=== PATIENT | male | born 1945 | race Caucasian/White ===

== ENCOUNTER 2022-04-20 14:30 | Inpatient (IN) | payer MEDICARE, OTHER ==
[~2022-04-20] VITALS: Ht 177.8 cm; Wt 69.4 kg
--- NOTE | 2022-04-20 14:50 | NUR ---
DR CESPEDES AT BEDSIDE FOR EVALUATION.
[2022-04-20 15:06] LABS: MEAN CORPUSCULAR HEMOGLOBIN 31.5 uug (23.8-33.4); MEAN CORPUSCULAR VOLUME 93.2 fL (73.0-96.2); PLATELET COUNT (AUTO) 141 K/uL (152-348)
[2022-04-20] MEDS ORDERED: SENN-18 PO (15:06)
[2022-04-20] MEDS ORDERED: PANT40TA2 PO (15:06)
[2022-04-20] MEDS ORDERED: POLY17PO4 PO (15:06)
[2022-04-20] MEDS ORDERED: OXYC5CAP18 PO (15:06)
[2022-04-20] MEDS ORDERED: MULT-1188 PO (15:06)
[2022-04-20 15:19] LABS: ALANINE AMINOTRANSFERASE 34 U/L (16-63); ALKALINE PHOSPHATASE 72 U/L (50-136); ASPARTATE AMINOTRANSFERASE 21 U/L (15-37); BILIRUBIN,DIRECT 0.2 mg/dL (0.0-0.2); CARBON DIOXIDE 31 mmol/L (21-32); CHLORIDE 106 mmol/L (98-107); CREATININE 1.4 mg/dL (0.6-1.3); GLUCOSE 114 mg/dL (74-106); POTASSIUM 4.3 mmol/L (3.5-5.1); TOTAL PROTEIN, SERUM 7.4 g/dL (6.4-8.2); UREA NITROGEN, BLOOD 31 mg/dL (7-18)
[2022-04-20] MEDS ORDERED: TRAZ-182 PO (15:36)
[2022-04-20] MEDS ORDERED: THIA100T13 PO (15:36)
[2022-04-20 15:39] LABS: ETHANOL < 3 MG/DL (0-0)
[2022-04-20 15:44] LABS: ACETAMINOPHEN < 2.0 ug/mL (10-30)
--- NOTE | 2022-04-20 15:48 | NUR ---
Spoke with gloria jackson, said she will come to evaluate the pt.
--- NOTE | 2022-04-20 15:48 | NUR ---
UA sent to lab
[2022-04-20 15:53] LABS: *BILIRUBIN,URIN NEGATIVE (NEGATIVE); *BLOOD, URINE NEGATIVE (NEGATIVE); *CLARITY,URINE CLEAR (CLEAR); *COLOR,URINE YELLOW (YELLOW); *KETONES,URINE NEGATIVE (NEGATIVE); *UROBILINOGEN,URINE 0.2 E.U./dl (NORMAL); LEUKOCYTE ESTERASE ,URINE NEGATIVE (NEGATIVE); NITRITE, URINE NEGATIVE (NEGATIVE); UGLUCOSE NEGATIVE (NEGATIVE)
[2022-04-20 16:03] LABS: *AMPHETAMINE, URINE NEGATIVE (NEGATIVE); *CANNABINOID, URINE NEGATIVE (NEGATIVE); *COCCAINE, URINE NEGATIVE (NEGATIVE); *OPIATE, URINE NEGATIVE (NEGATIVE); *PHENCYCLIDINE SCREEN,URINE NEGATIVE (NEGATIVE)
--- NOTE | 2022-04-20 16:18 | NUR ---
ROGER HERE FOR PSYCH EVALUATION.
[2022-04-20] MEDS ORDERED: FOLI1TAB94 PO (16:44)
[2022-04-20] MEDS ORDERED: ACET-2154 PO (16:44)
[2022-04-20] MEDS ORDERED: MAGN400C PO (16:44)
[2022-04-20] MEDS ORDERED: CHOLECALCIFEROL PO (16:44)
[2022-04-20] MEDS ORDERED: LACT10SO3 PO (16:44)
--- NOTE | 2022-04-20 16:46 | NUR ---
Per gloria said art will come to evaluate the pt.
--- NOTE | 2022-04-20 18:39 | NUR ---
Pinky on pts bedside for pysche eval.
--- NOTE | 2022-04-20 20:02 | NUR ---
Report given to Massimo KWONG
[2022-04-20] MEDS ORDERED: LORAZEPAM 0.5 MG TABLET PO PRN (20:30)
[2022-04-20] MEDS ORDERED: MAG HYDROX/AL HYDROX/SIMETH 30 ML LIQUID UDC PO PRN (20:30)
[2022-04-20] MEDS ORDERED: ACETAMINOPHEN 325 MG TABLET PO PRN (20:30)
[2022-04-20] MEDS ORDERED: MAGNESIUM HYDROXIDE 30 ML LIQUID UDC PO PRN (20:30)
--- NOTE | 2022-04-20 20:43 | NUR ---
pt taken to [facility] via [facility] with all belongings.
[2022-04-20] MEDS ORDERED: CHOL-35 PO (20:45)
[2022-04-20 20:50] VITALS: BP 165/99
[2022-04-20] MEDS ORDERED: BLOOD SUGAR DIAGNOSTIC 1 EACH STRIP VI ONE (21:00)
--- NOTE | 2022-04-21 00:01 | NUR ---
Patient received from [facility] via [facility] at 2030. Patient Alert/Oriented x1 disoriented, agitated, labile, aggressive, and appearance was unkempt. Patient refused to take pictures of injuries to left periorbital redness, left arm ecchymosis, and right arm ecchymosis. Patient was unable to answer questions due to confusion and became irritable with pressured speech and refused to answer, however, he denied SI.Patient refused having accucheck and refused snack, "I just want to go to bed and be left alone." Patient was checked for contraband and was oriented to room.Safety measures rendered, bed in lowest position, bed locked, and bed alarm on while in bed.
[2022-04-21 07:30] VITALS: BP 151/65
[2022-04-21] MEDS ORDERED: OLANZAPINE 2.5 MG TABLET PO SCH ×2 (09:00)
[2022-04-21] MEDS: DIVALPROEX SPRINKLE 125 MG CAP.SPRINK PO SCH ×2 (10:05→20:12)
[2022-04-21] MEDS: OLANZAPINE 5 MG TABLET PO SCH (10:05)
[2022-04-21 12:55] LABS: ALANINE AMINOTRANSFERASE 47 U/L (16-63); ALKALINE PHOSPHATASE 71 U/L (50-136); ASPARTATE AMINOTRANSFERASE 31 U/L (15-37); BILIRUBIN,TOTAL 1.4 mg/dL (0.2-1.0); CARBON DIOXIDE 31 mmol/L (21-32); CHLORIDE 104 mmol/L (98-107); CREATININE 1.5 mg/dL (0.6-1.3); GLUCOSE 56 mg/dL (74-106); POTASSIUM 3.9 mmol/L (3.5-5.1); TOTAL PROTEIN, SERUM 7.9 g/dL (6.4-8.2); UREA NITROGEN, BLOOD 30 mg/dL (7-18)
--- NOTE | 2022-04-21 15:13 | NUR ---
Received patient is alert and oriented x1 to self only,ambulating in the unit no interaction with peers and staffs.patient is labile and aggressive when approach , patient with poor insight and impair judgement denies any SI. compliant with all AM medication will continue close monitoring.
[2022-04-21 16:00] VITALS: BP 133/63
[2022-04-21] MEDS ORDERED: OXYCODONE HCL 5 MG TABLET PO PRN (18:30)
[2022-04-21 20:00] VITALS: BP 124/71
[2022-04-21] MEDS: MAGNESIUM OXIDE 400 MG TABLET PO SCH (20:12)
--- NOTE | 2022-04-22 04:09 | NUR ---
Received patient in his room, sleeping. Responsive to name, A&Ox1. Isolative in his room. Compliant with medications. Patient to be avoidant with staff. Safety strategies in place. Closely monitoring observed.
[2022-04-22] MEDS: PANTOPRAZOLE SODIUM 40 MG TABLET.DR PO SCH (06:16)
[2022-04-22 07:48] VITALS: BP 95/55
[2022-04-22] MEDS: THIAMINE HCL 100 MG TABLET PO SCH ×2 (09:00→09:22)
[2022-04-22] MEDS: LACTULOSE 20 G/30 ML LIQUID UDC PO SCH (09:00)
[2022-04-22] MEDS: OLANZAPINE 5 MG TABLET PO SCH ×2 (09:00→09:19)
[2022-04-22] MEDS: MULTIVIT, IRON, MIN NO. 8, FA TABLET PO SCH ×2 (09:00→09:22)
[2022-04-22] MEDS: MIRALAX 17 GM POWD.PACK PO SCH ×2 (09:00→09:22)
[2022-04-22] MEDS: DIVALPROEX SPRINKLE 125 MG CAP.SPRINK PO SCH ×3 (09:00→21:38)
--- NOTE | 2022-04-22 10:18 | NUR ---
Gps/Decker Operator- Agry, irritable behavior, refused routine am meds. reviewed with patient, claimed he does not needs any medications and he spoked to the Doctor this am . Incontinence noted, was taken to shower, uncooperative during his care, gets agry, and aggressive trying to hit FINANCE DIRECTOR during his shower. Needings prompting and redirections in sequencing tasks, difficulty following directions, agruementative.
--- NOTE | 2022-04-22 12:04 | NUR ---
SW Discharge Update: Pt currently resides at [address] [address] ([phone]). Alicia from the facility stated that pt is welcome back upon discharge.
--- NOTE | 2022-04-22 12:15 | NUR ---
ANKIT Initial Discharge Note: Pt currently resides at [address] [address] ([phone]). Alicia from the facility stated that pt is welcome back upon discharge. ANKIT will continue to work with pt's sister, Rohitsylvia [place]oss[place] ([phone]), pt, and MD to ensure a safe and proper discharge plan.
--- NOTE | 2022-04-22 12:19 | NUR ---
Firearms Report: Talent Advisor completed and submitted a [employer] firearms report for 5150 a danger to others and grave disability certifications. A copy of report has been placed in patient chart.
[2022-04-22 16:20] VITALS: BP 104/51
--- NOTE | 2022-04-22 21:30 | NUR ---
Received patient in his room. He is noted sleeping but easily arousable. noted A/o x 2. Patient is noted guarded, and irritable upon apporached, but he is looking forward to go back to his SNF. He stated, "At my place, i have a TV next to my bed. i could watch tv at night, not in this place". Patient was reassured and redirected. Initially he refused his QHS medications but after redirections and reassurance, He was able to take all his medications. patient denied SI/HI/VH/AH. he is able to CFS, He was given PO fluids and snacks. V/S are stable. patient is reassured for his safety. safety and fall precaution are in place. will continue to monitor.
[2022-04-22] MEDS: MAGNESIUM OXIDE 400 MG TABLET PO SCH (21:38)
[2022-04-23] MEDS: PANTOPRAZOLE SODIUM 40 MG TABLET.DR PO SCH (06:47)
[2022-04-23 07:43] VITALS: BP 124/67
[2022-04-23] MEDS: MIRALAX 17 GM POWD.PACK PO SCH (09:00)
[2022-04-23] MEDS: LACTULOSE 20 G/30 ML LIQUID UDC PO SCH (09:00)
[2022-04-23] MEDS: MULTIVIT, IRON, MIN NO. 8, FA TABLET PO SCH (09:24)
[2022-04-23] MEDS: DIVALPROEX SPRINKLE 125 MG CAP.SPRINK PO SCH ×2 (09:24→20:09)
[2022-04-23] MEDS: OLANZAPINE 5 MG TABLET PO SCH ×2 (09:25→18:06)
[2022-04-23] MEDS: THIAMINE HCL 100 MG TABLET PO SCH (09:25)
[2022-04-23 17:01] VITALS: BP 116/56
[2022-04-23] MEDS: MAGNESIUM OXIDE 400 MG TABLET PO SCH (20:09)
[2022-04-23 20:44] VITALS: BP 111/49
--- NOTE | 2022-04-24 03:37 | NUR ---
GPS NOTES: Received patient in his room, sleeping, arousable to name and touch. Attempt to greet, but is irritable and with blunt affect. Patient isolative, depress and doesn't interact with staff or peers. Compliant with medication. Safety strategies in place.
[2022-04-24] MEDS: PANTOPRAZOLE SODIUM 40 MG TABLET.DR PO SCH (06:16)
[2022-04-24 07:49] VITALS: BP 112/70
[2022-04-24] MEDS: MIRALAX 17 GM POWD.PACK PO SCH (08:55)
[2022-04-24] MEDS: MULTIVIT, IRON, MIN NO. 8, FA TABLET PO SCH (08:55)
[2022-04-24] MEDS: LACTULOSE 20 G/30 ML LIQUID UDC PO SCH (08:55)
[2022-04-24] MEDS: THIAMINE HCL 100 MG TABLET PO SCH (08:55)
[2022-04-24] MEDS: DIVALPROEX SPRINKLE 125 MG CAP.SPRINK PO SCH ×2 (08:55→20:14)
[2022-04-24] MEDS: OLANZAPINE 5 MG TABLET PO SCH ×2 (08:55→16:38)
--- NOTE | 2022-04-24 13:58 | NUR ---
GPS: Nursing Notes: Destructive Behavior To Others: Patient is awake and responding to his name, poor anger management, loud and pressured speech, angry affect, labile, refusing to participate in therapeutic groups, unkempt appearance, resistant with nursing care, stated, "Just leave alone..", needs prompting to be compliant with his medications, unable to formulate a viable plan for self care, isolative and withdrawn in his room, covering his head with a blanket, continue to monitor for safety, continue with treatment plan.
[2022-04-24 16:06] VITALS: BP 102/56
[2022-04-24 20:00] VITALS: BP 106/64
[2022-04-24] MEDS: MAGNESIUM OXIDE 400 MG TABLET PO SCH (20:14)
[2022-04-25] MEDS: PANTOPRAZOLE SODIUM 40 MG TABLET.DR PO SCH (06:24)
--- NOTE | 2022-04-25 06:37 | NUR ---
GPS: Pt.slept 8.30 last night. Less irritable this am. Re-assured prn. Safety emphasized. Took Protonix earlier as ordered. Will continue to monitor.
[2022-04-25 07:36] VITALS: BP 119/66
[2022-04-25] MEDS: OLANZAPINE 5 MG TABLET PO SCH ×2 (08:44→16:28)
[2022-04-25] MEDS: THIAMINE HCL 100 MG TABLET PO SCH (08:44)
[2022-04-25] MEDS: MULTIVIT, IRON, MIN NO. 8, FA TABLET PO SCH (08:44)
[2022-04-25] MEDS: DIVALPROEX SPRINKLE 125 MG CAP.SPRINK PO SCH ×2 (08:44→20:12)
[2022-04-25] MEDS: LACTULOSE 20 G/30 ML LIQUID UDC PO SCH (08:45)
[2022-04-25] MEDS: MIRALAX 17 GM POWD.PACK PO SCH (08:45)
--- NOTE | 2022-04-25 10:52 | NUR ---
GPS: Nursing Notes: Destructive Behavior To Others: Patient is awake and responding to his name, poor anger management, resistant with nursing care, loud and pressured speech, resistant with nursing care, poor grooming, unkempt appearance, needs a lot prompting to be compliant with his medications, angry affect, isolative and withdrawn in his room, covering his head with a blanket, redirected, but shouting "LEAVE ME ALONE..", refusing to participate in therapeutic groups, unable to formulate a viable plan for self care, continue to monitor for safety, continue with treatment plan.
[2022-04-25 16:28] VITALS: BP 149/80
[2022-04-25 19:58] VITALS: BP 136/74
[2022-04-25] MEDS: MAGNESIUM OXIDE 400 MG TABLET PO SCH (20:12)
[2022-04-26] MEDS: TEMAZEPAM 7.5 MG CAPSULE PO PRN ×2 (00:16→21:09)
[2022-04-26] MEDS: PANTOPRAZOLE SODIUM 40 MG TABLET.DR PO SCH (06:04)
--- NOTE | 2022-04-26 06:36 | NUR ---
GPS: Pt. got agitated at this time and claiming that the remote control that he's holding does not work for his TV inside his room. Reminded pt.that he does not have a TV in his room. Also seeing rats inside his room. Easily agitated when being re-directed. Reality re-orientation provided. Ativan 0.5mg given PO and taken. Will continue to monitor.
--- NOTE | 2022-04-26 06:50 | NUR ---
GPS: Pt.refused scheduled blood drawing this am despite explanation of importance. l
--- NOTE | 2022-04-26 06:57 | NUR ---
GPS: Pt.finally allowed to have blood drawing now. Communicated. Calmer at this time.
[2022-04-26 07:07] LABS: HEMATOCRIT 45.4 % (36.7-47.1); MEAN CORPUSCULAR HEMOGLOBIN 31.8 uug (23.8-33.4); MEAN CORPUSCULAR VOLUME 92.1 fL (73.0-96.2); PLATELET COUNT (AUTO) 143 K/uL (152-348)
[2022-04-26 07:16] LABS: ALANINE AMINOTRANSFERASE 40 U/L (16-63); ALKALINE PHOSPHATASE 75 U/L (50-136); ASPARTATE AMINOTRANSFERASE 28 U/L (15-37); BILIRUBIN,TOTAL 2.1 mg/dL (0.2-1.0); CARBON DIOXIDE 25 mmol/L (21-32); CHLORIDE 106 mmol/L (98-107); CREATININE 1.4 mg/dL (0.6-1.3); GLUCOSE 92 mg/dL (74-106); MAGNESIUM 1.8 mg/dL (1.8-2.4); PHOSPHOROUS 3.3 mg/dL (2.5-4.9); TOTAL PROTEIN, SERUM 7.9 g/dL (6.4-8.2); UREA NITROGEN, BLOOD 36 mg/dL (7-18)
[2022-04-26 08:01] VITALS: BP 145/92
[2022-04-26] MEDS: THIAMINE HCL 100 MG TABLET PO SCH (08:43)
[2022-04-26] MEDS: OLANZAPINE 5 MG TABLET PO SCH ×2 (08:43→17:17)
[2022-04-26] MEDS: DIVALPROEX SPRINKLE 125 MG CAP.SPRINK PO SCH ×2 (08:43→21:09)
[2022-04-26] MEDS: MULTIVIT, IRON, MIN NO. 8, FA TABLET PO SCH (08:43)
[2022-04-26] MEDS: LACTULOSE 20 G/30 ML LIQUID UDC PO SCH (08:43)
[2022-04-26] MEDS: MIRALAX 17 GM POWD.PACK PO SCH (08:43)
[2022-04-26] MEDS: GLUCERNA SHAKE 237 ML CAN PO SCH (11:45)
--- NOTE | 2022-04-26 11:54 | NUR ---
GPS: Nursing Notes: Thought Disorder: Patient is awake and responding to his name, impaired judgment, disorganized, resistant with nursing care, internally preoccupied, believes that the TV in his room is not working, by clicking his finger during the night, his fingers got injured and he was trying to make his bed, small spots of blood all over his bed sheet and the randall that he touched, when asked what happened accused staff of fighting with him, redirected and reoriented during shift, no signs of bleeding during assessment, given a shower, compliant with his medications, gets easily irritable redirected, labile, unpredictable behavior, unable to formulate a viable plan for self care, continue to monitor for safety, continue with treatment plant.
--- NOTE | 2022-04-26 14:15 | NUR ---
PT [facility] 14 DAY HOLD HEARING DONE TODAY AND WITH APPROVE PROBABLE CAUSE OF GRAVE DISABILITY ONLY. PT DID NOT PARTICIPATE WITH THE HEARING.
[2022-04-26 16:35] VITALS: BP 144/66
[2022-04-26 19:52] VITALS: BP 142/76
[2022-04-26] MEDS: MAGNESIUM OXIDE 400 MG TABLET PO SCH (21:09)
[2022-04-27] MEDS: PANTOPRAZOLE SODIUM 40 MG TABLET.DR PO SCH (06:56)
[2022-04-27 07:30] VITALS: BP 108/51
[2022-04-27] MEDS: MIRALAX 17 GM POWD.PACK PO SCH (09:00)
[2022-04-27] MEDS: LACTULOSE 20 G/30 ML LIQUID UDC PO SCH (09:00)
[2022-04-27] MEDS: DIVALPROEX SPRINKLE 125 MG CAP.SPRINK PO SCH ×2 (09:24→20:30)
[2022-04-27] MEDS: MULTIVIT, IRON, MIN NO. 8, FA TABLET PO SCH (09:24)
[2022-04-27] MEDS: OLANZAPINE 5 MG TABLET PO SCH ×2 (09:24→16:38)
[2022-04-27] MEDS: GLUCERNA SHAKE 237 ML CAN PO SCH (09:24)
[2022-04-27] MEDS: THIAMINE HCL 100 MG TABLET PO SCH (09:24)
--- NOTE | 2022-04-27 14:25 | NUR ---
GPS: Nursing Notes: Destructive Behavior To Others: Patient is awake and responding to is name, gets easily irritable when redirected, mood swings, angry affect, loud and pressured speech at times, resistant with nursing care, argumentative with staff at times, refusing to participate in therapeutic groups, poor grooming, unkempt appearance, unable to formulate a viable plan for self care, poor insight, impaired judgment, believes that someone stole his TV, continue to monitor for safety, continue with treatment plan.
[2022-04-27 15:44] VITALS: BP 113/61
[2022-04-27] MEDS ORDERED: MIRALAX 17 GM POWD.PACK PO PRN (16:15)
[2022-04-27 20:13] VITALS: BP 112/56
[2022-04-27] MEDS: MAGNESIUM OXIDE 400 MG TABLET PO SCH (20:30)
[2022-04-28] MEDS: PANTOPRAZOLE SODIUM 40 MG TABLET.DR PO SCH (06:16)
[2022-04-28 07:30] VITALS: BP 121/48
[2022-04-28 08:30] VITALS: BP 121/48
[2022-04-28] MEDS: OLANZAPINE 5 MG TABLET PO SCH ×2 (08:34→17:36)
[2022-04-28] MEDS: MULTIVIT, IRON, MIN NO. 8, FA TABLET PO SCH (08:34)
[2022-04-28] MEDS: DIVALPROEX SPRINKLE 125 MG CAP.SPRINK PO SCH ×2 (08:34→20:35)
[2022-04-28] MEDS: THIAMINE HCL 100 MG TABLET PO SCH (08:34)
[2022-04-28] MEDS: GLUCERNA SHAKE 237 ML CAN PO SCH (08:35)
[2022-04-28 16:40] VITALS: BP 126/49
--- NOTE | 2022-04-28 16:49 | NUR ---
GPS: PT ISOLATIVE, STAYING IN HIS ROOM ALMOST ALL THE TIME. PT COMPLIANT WITH MEDICATIONS. REFUSED ATTENDING GROUP THERAPY. DENIES PAIN OR DISCOMFORT.
[2022-04-28] MEDS: MAGNESIUM OXIDE 400 MG TABLET PO SCH (20:35)
[2022-04-28 20:41] VITALS: BP 96/54
--- NOTE | 2022-04-29 06:12 | NUR ---
Received to care, lying in bed. Remains isolative.Compliant with medications. Slept 11 hours last night. Went to the bathroom this morning, and went back to bed. No distress noted.
[2022-04-29] MEDS: PANTOPRAZOLE SODIUM 40 MG TABLET.DR PO SCH (06:32)
[2022-04-29 07:09] LABS: *BILIRUBIN,URIN NEGATIVE (NEGATIVE); *BLOOD, URINE NEGATIVE (NEGATIVE); *CLARITY,URINE CLEAR (CLEAR); *COLOR,URINE YELLOW (YELLOW); *KETONES,URINE NEGATIVE (NEGATIVE); *UROBILINOGEN,URINE 0.2 E.U./dl (NORMAL); LEUKOCYTE ESTERASE ,URINE NEGATIVE (NEGATIVE); NITRITE, URINE NEGATIVE (NEGATIVE); PH,URINE 5.5 (5.0-8.0); UGLUCOSE NEGATIVE (NEGATIVE)
[2022-04-29 07:30] VITALS: BP 133/70
[2022-04-29 07:33] LABS: *CREATININE,URINE 60.8 mg/dL (30-125)
[2022-04-29] MEDS: GLUCERNA SHAKE 237 ML CAN PO SCH (08:27)
[2022-04-29] MEDS: MULTIVIT, IRON, MIN NO. 8, FA TABLET PO SCH (08:27)
[2022-04-29] MEDS: THIAMINE HCL 100 MG TABLET PO SCH (08:27)
[2022-04-29] MEDS: OLANZAPINE 5 MG TABLET PO SCH ×2 (08:27→17:47)
[2022-04-29] MEDS: DIVALPROEX SPRINKLE 125 MG CAP.SPRINK PO SCH ×2 (08:27→20:00)
--- NOTE | 2022-04-29 09:27 | NUR ---
GPS: PT ALERT AND ORIENTED X2. PT ISOLATIVE, STAYING IN HIS ROOM ONLY. INDEPENDENT WITH TOILETING. PT COMPLIANT WITH MEDS AND CARE. NO AGITATION NOTED AT THIS TIME. PT ENCOURAGED GROUP THERAPY BUT REFUSED.
[2022-04-29 12:31] LABS: MEAN CORPUSCULAR HEMOGLOBIN 31.7 uug (23.8-33.4); MEAN CORPUSCULAR VOLUME 92.8 fL (73.0-96.2); PLATELET COUNT (AUTO) 130 K/uL (152-348)
[2022-04-29 12:41] LABS: CARBON DIOXIDE 29 mmol/L (21-32); CHLORIDE 108 mmol/L (98-107); CREATININE 1.6 mg/dL (0.6-1.3); GLUCOSE 82 mg/dL (74-106); MAGNESIUM 1.8 mg/dL (1.8-2.4); PHOSPHOROUS 3.1 mg/dL (2.5-4.9); UREA NITROGEN, BLOOD 39 mg/dL (7-18)
[2022-04-29 15:31] VITALS: BP 104/59
[2022-04-29 20:00] VITALS: BP 126/59
[2022-04-29] MEDS: MAGNESIUM OXIDE 400 MG TABLET PO SCH (20:00)
[2022-04-30] MEDS: PANTOPRAZOLE SODIUM 40 MG TABLET.DR PO SCH (06:15)
--- NOTE | 2022-04-30 06:22 | NUR ---
Received to care, lying in bed, isolative, but pleasant and cooperative. Compliant with medications. Given fluids, and a snack. Fresh water left at bedside. Slept well and was assisted with a shower, this morning. He sat up for a few minutes watching TV, then went back to sleep, And remains so. No aggressive behaviors noted this shift.
[2022-04-30 07:30] VITALS: BP 142/71
[2022-04-30] MEDS: MULTIVIT, IRON, MIN NO. 8, FA TABLET PO SCH (09:07)
[2022-04-30] MEDS: DIVALPROEX SPRINKLE 125 MG CAP.SPRINK PO SCH ×2 (09:14→20:30)
[2022-04-30] MEDS: OLANZAPINE 2.5 MG TABLET PO SCH ×2 (09:14→16:32)
[2022-04-30] MEDS: GLUCERNA SHAKE 237 ML CAN PO SCH (09:16)
[2022-04-30] MEDS: THIAMINE HCL 100 MG TABLET PO SCH (09:17)
--- NOTE | 2022-04-30 11:07 | NUR ---
Gps/Rn Office- Stayed in the activity room, watching TV. Compliant with his am routine meds. Quiet , no interactive, Remains with some patches of bruising on his arms, skin tenting , dry. Safety reviewed. Attended his am group therapy, noted napping on his chair.
[2022-04-30 16:25] VITALS: BP 108/56
[2022-04-30 19:45] VITALS: BP 92/55
[2022-04-30] MEDS: MAGNESIUM OXIDE 400 MG TABLET PO SCH (20:30)
[2022-05-01] MEDS: PANTOPRAZOLE SODIUM 40 MG TABLET.DR PO SCH (06:16)
[2022-05-01 07:30] VITALS: BP 126/75
[2022-05-01] MEDS: THIAMINE HCL 100 MG TABLET PO SCH (08:21)
[2022-05-01] MEDS: MULTIVIT, IRON, MIN NO. 8, FA TABLET PO SCH (08:21)
[2022-05-01] MEDS: DIVALPROEX SPRINKLE 125 MG CAP.SPRINK PO SCH ×2 (08:21→20:43)
[2022-05-01] MEDS: OLANZAPINE 2.5 MG TABLET PO SCH ×2 (08:25→16:49)
[2022-05-01] MEDS: GLUCERNA SHAKE 237 ML CAN PO SCH (08:28)
--- NOTE | 2022-05-01 14:39 | NUR ---
Gps/Director Field Services- Staying in bed, in his room most of the day, encouraged attending his group therapy . Guarded, compliant with routine meds.
[2022-05-01 16:00] VITALS: BP 124/65
[2022-05-01 20:00] VITALS: BP 107/60
[2022-05-01] MEDS: MAGNESIUM OXIDE 400 MG TABLET PO SCH (20:43)
--- NOTE | 2022-05-01 21:45 | NUR ---
received patient in his room in bed sleeping with his blanket covering all his face. pt is easily arousable. he is a poor historian, makes no eye contact. He is easily irritable. he requires redirection and reassurance. His V/S stable. PO fluids and snacks were given to patient. He is reassure for his safety. safety and fall precaution in place. will continue to monitor.
[2022-05-02] MEDS: PANTOPRAZOLE SODIUM 40 MG TABLET.DR PO SCH (06:01)
[2022-05-02 07:55] LABS: HEMATOCRIT 39.2 % (36.7-47.1); MEAN CORPUSCULAR HEMOGLOBIN 31.9 uug (23.8-33.4); MEAN CORPUSCULAR VOLUME 91.9 fL (73.0-96.2); PLATELET COUNT (AUTO) 130 K/uL (152-348)
[2022-05-02] MEDS: MULTIVIT, IRON, MIN NO. 8, FA TABLET PO SCH (08:09)
[2022-05-02] MEDS: DIVALPROEX SPRINKLE 125 MG CAP.SPRINK PO SCH ×2 (08:09→20:27)
[2022-05-02] MEDS: OLANZAPINE 2.5 MG TABLET PO SCH ×2 (08:10→17:48)
[2022-05-02 08:11] LABS: CREATININE 1.3 mg/dL (0.6-1.3); MAGNESIUM 1.8 mg/dL (1.8-2.4); PHOSPHOROUS 3.9 mg/dL (2.5-4.9); POTASSIUM 4.6 mmol/L (3.5-5.1)
[2022-05-02] MEDS: THIAMINE HCL 100 MG TABLET PO SCH (08:11)
[2022-05-02] MEDS: GLUCERNA SHAKE 237 ML CAN PO SCH (08:11)
[2022-05-02 08:13] VITALS: BP 140/65
[2022-05-02 16:17] VITALS: BP 132/71
[2022-05-02 19:51] VITALS: BP 142/66
[2022-05-02] MEDS: MAGNESIUM OXIDE 400 MG TABLET PO SCH (20:27)
--- NOTE | 2022-05-03 03:58 | NUR ---
Received patient in his room, ambulating to restroom with steady gait noted. Went back to bed after and doesn't want to be bother, irritable when approached. Denies SI or any hallucinations. Provided snacks, tolerated well. Compliant with medications and care. No apparent behavioral changes noted. Patient to be sleeping mostly during shift. Fall precaution and safety strategies observed.
[2022-05-03] MEDS: PANTOPRAZOLE SODIUM 40 MG TABLET.DR PO SCH (06:25)
[2022-05-03 08:11] VITALS: BP 114/55
[2022-05-03] MEDS: OLANZAPINE 2.5 MG TABLET PO SCH ×2 (08:37→17:15)
[2022-05-03] MEDS: THIAMINE HCL 100 MG TABLET PO SCH (08:37)
[2022-05-03] MEDS: MULTIVIT, IRON, MIN NO. 8, FA TABLET PO SCH (08:37)
[2022-05-03] MEDS: DIVALPROEX SPRINKLE 125 MG CAP.SPRINK PO SCH ×2 (08:37→22:09)
[2022-05-03] MEDS: GLUCERNA SHAKE 237 ML CAN PO SCH (08:38)
--- NOTE | 2022-05-03 14:05 | NUR ---
GPS: Nursing Notes; Destructive behavior To Others: Patient is awake and responding to his name, poor impulse control, gets easily irritable when redirected, internally preoccupied, angry affect, labile, unpredictable behavior, needs a lot of prompting to participate in therapeutic groups, unable to formulate a viable plan for self care, continue to monitor for safety, continue with treatment plan.
[2022-05-03 16:29] VITALS: BP 156/94
[2022-05-03 20:25] VITALS: BP 105/67
[2022-05-03] MEDS: MAGNESIUM OXIDE 400 MG TABLET PO SCH (22:05)
[2022-05-04] MEDS: PANTOPRAZOLE SODIUM 40 MG TABLET.DR PO SCH (06:41)
[2022-05-04 07:30] VITALS: BP 148/62
[2022-05-04] MEDS: OLANZAPINE 2.5 MG TABLET PO SCH (09:17)
[2022-05-04] MEDS: DIVALPROEX SPRINKLE 125 MG CAP.SPRINK PO SCH (09:17)
[2022-05-04] MEDS: MULTIVIT, IRON, MIN NO. 8, FA TABLET PO SCH (09:17)
[2022-05-04] MEDS: THIAMINE HCL 100 MG TABLET PO SCH (09:17)
[2022-05-04] MEDS: GLUCERNA SHAKE 237 ML CAN PO SCH (09:18)
--- NOTE | 2022-05-04 11:02 | NUR ---
SW Discharge Note: Pt will be discharged to [facility] ([phone]) located at [address] [place] [id number] via Ambulance transportation at 11AM. SW spoke with admin coordinator, Akua ([phone]) and Alicia ([phone]) at the facility who state they are ready to accept the patient today. Pt is aware and agreeable with the discharge plan. Pt has a sister, Reny ([phone]). However, pt refused to allow SW to speak to her. Pts sister has not contacted this rewriter. Pt is alert and oriented x2(name and location), is unable to plan for self-care at this time but is willing to accept care at SNF. Pt denies any suicidal or homicidal ideation. Pt will follow-up at the facility with Psychiatrist, Dr. Brady and Child Care Centre Director, Dr. Hastings. Pt presents with calm mood and congruent affect. Pts PHARMACY: [facility] ([phone]) located at [address] [facility] [address]. Pt will continue care in Room 35B per Alicia at [facility] ([phone]).
--- NOTE | 2022-05-04 13:15 | NUR ---
GPS: Nursing Notes: Discharge Notes: Patient is awake and responding to his name, compliant with his medications, cooperative with nursing care, following staff directions, denies SI/HI, denies AH/VH, denies pain or discomfort, denies SOB, discharge to [place] at [address] [place] [address] [phone] , report given to facility's nurse - ELENITA Adler instrumentation supervisor, transported to facility via ambulance, took all his belongings with him. Patient will follow-up at the facility with Psychiatrist, Dr. Brady and Tobacco Grader, Dr. Hastings for aftercare.
== END 2022-05-04 13:15 | DRG 885 ==
LOC: ER 14:30 → GPS 20:12
PROVIDERS: ADMIT Nurse Practitioner Psychiatric/Mental Health; ATTEND Nurse Practitioner Acute Care
DX: F29 Unspecified psychosis not due to a substance or known physiological condition (principal); N17.0 Acute kidney failure with tubular necrosis; N18.9 Chronic kidney disease, unspecified; I50.32 Chronic diastolic (congestive) heart failure; R65.10 Systemic inflammatory response syndrome (SIRS) of non-infectious origin without acute organ dysfunction; E11.22 Type 2 diabetes mellitus with diabetic chronic kidney disease; E83.51 Hypocalcemia; E87.6 Hypokalemia; F10.10 Alcohol abuse, uncomplicated; F32.A Depression, unspecified; Z87.891 Personal history of nicotine dependence; D69.59 Other secondary thrombocytopenia; D63.8 Anemia in other chronic diseases classified elsewhere; Z73.6 Limitation of activities due to disability; Z86.73 Personal history of transient ischemic attack (TIA), and cerebral infarction without residual deficits; M19.212 Secondary osteoarthritis, left shoulder; M19.211 Secondary osteoarthritis, right shoulder; M75.102 Unspecified rotator cuff tear or rupture of left shoulder, not specified as traumatic; M75.101 Unspecified rotator cuff tear or rupture of right shoulder, not specified as traumatic; M53.80 Other specified dorsopathies, site unspecified
CPT/HCPCS: 36415; 70480; 76770; 80164; 83735; 84100; 84300; 85025; 93005; 97161; A4663; G0480